=== PATIENT | female | born 1985 | race Caucasian/White ===

== ENCOUNTER → 2018-03-02 | Outpatient (CLI) | payer MEDICAID ==
[2015-08-01 17:42] VITALS: BMI 29.1
[~2018-03-02] MED LIST: ACET-1718 PO; BUTA-324 PO; CIPR-212 PO; DOXY-179 PO; ETON1VAG7 VG; IBU800 PO; IBUP800T37 PO; MARINA IUD; METR-1 PO; NIFE10CA38 PO; NOR5/325 PO; NORE-14 PO; OND4 PO; ONDA8TAB94 PO; OXYC-689 PO; PER PO; PRE20 PO; PREN-119 PO; PREN-67 PO; PROL120 PO; PROM12.546 PO; PSEU120T69 PO
--- NOTE | 2018-03-03 11:46 | RADIOLOGY IMAGING REPORT ---
FACILITY: [facility] - [place] PATIENT NAME: JIMMY CASTILLO : [id number] MR: [id number] V: [id number] EXAM DATE: ORDERING PHYSICIAN: AUTUMN VELAZQUEZ TECHNOLOGIST: Meaghan Escamilla PROCEDURE:BILATERAL DIAGNOSTIC DIGITAL MAMMOGRAM WITH CAD ASSISTED INTERPRETATION & 3D TOMOSYNTHESIS COMPARISON:None. INDICATIONS:BLOODY DISCHARGE FROM RIGHT NIPPLE. FINDINGS: Mildly heterogeneous fibroglandular tissue is seen throughout the breasts. There is no demonstration of malignant appearing mass, malignant appearing calcifications or other secondary sign of malignancy in either breast. DIAGNOSTIC CATEGORY 2--BENIGN FINDING. RECOMMENDATIONS: CLINICAL EVALUATION. IMPRESSION: BIRADS 2: Benign finding No significant abnormality of the breast is seen. Today's Right breast Ultrasound also revealed no abnormality other than minimally prominent Right retroareolar ducts therefore clinical follow-up is recommend for patient's bloody discharge of the Right nipple. Of noted a negative mammogram or Ultrasound report should not preclude biopsy or clinically suspicious lesion. Dictated by: Rebeca Rivera M.D. on 03/02/2018 at 15:59 Transcribed by: MADELINE on 03/03/2018 at 8:16 Approved by: Rebeca Rivera M.D. on 03/03/2018 at 11:45 [facility]
--- NOTE | 2018-03-03 11:47 | RADIOLOGY IMAGING REPORT ---
FACILITY: [facility] - [place] PATIENT NAME: JIMMY CASTILLO : [id number] MR: [id number] V: [id number] EXAM DATE: [id number] ORDERING PHYSICIAN: AUTUMN VELAZQUEZ TECHNOLOGIST: Nikko Wilder PROCEDURE:US RIGHT BREAST COMPLETE COMPARISON:None. INDICATIONS:RIGHT BREAST BLOODY DISCHARGE FROM NIPPLE. FINDINGS: There's several minimally prominent ducts identified in the Right retroareolar breast. No internal debris or mass is identified within the visualized ducts. Clinical follow-up recommended for patient's bloody nipple discharge on the Right. DIAGNOSTIC CATEGORY 2--BENIGN FINDING. RECOMMENDATIONS: CLINICAL EVALUATION. IMPRESSION: BIRADS 2: Benign finding No significant abnormality is identified other than minimally prominent ducts in the Right retroareolar breast. Clinical follow-up recommend for patient's blood Right nipple discharge. Dictated by: Rebeca Rivera M.D. on 03/02/2018 at 15:56 Transcribed by: MADELINE on 03/03/2018 at 8:21 Approved by: Rebeca Rivera M.D. on 03/03/2018 at 11:46 [facility]
== END ==
LOC: MAMO 10:18
PROVIDERS: ATTEND Student in an Organized Health Care Education/Training Program
DX: N60.41 Mammary duct ectasia of right breast (principal)
CPT/HCPCS: 77062; 77066

== ENCOUNTER 2018-03-23 01:52 | Day surgery (SDC) | payer MEDICAID ==
[2015-08-01 17:42] VITALS: Ht 172.7 cm; Wt 72.1 kg
--- NOTE | 2018-03-09 12:07 | NACHTIGAL H&P ---
DATE OF ADMISSION: March 23, 2018 CHIEF COMPLAINT Bloody nipple discharge on the left. HISTORY OF PRESENT ILLNESS This 33-year-old asymptomatic female has had pain with bloody nipple discharge on the left for about three weeks. She had no family history of breast cancer, no palpable masses. She underwent an an ultrasound and mammogram, which were normal. ALLERGIES KEFLEX. CURRENT MEDICATIONS She has a copper IUD and multivitamin. PAST MEDICAL HISTORY/OPERATIONS She had a cholecystectomy and a knee operation x 3, an ovarian cyst removal. REVIEW OF SYSTEMS No cardiac, pulmonary, liver or kidney disease, diabetes or hypertension. No history of deep vein thrombosis. PHYSICAL EXAMINATION GENERAL: A 33-year-old female in no acute distress. BREASTS: She has no palpable breast masses. She has bloody nipple discharge at about the one o'clock position on the nipple on the left side. IMPRESSION Bloody nipple discharge. PLAN We will try to excised that ductal system. We will inject that with methylene blue and then excise the duct system. SMITH
[~2018-03-23] VITALS: Ht 172.7 cm; Wt 72.1 kg
[~2018-03-23 01:52] MED LIST changes: +BUTA1CAP6 PO; +MULT-1335 PO
[2018-03-23 06:10] VITALS: BP 109/76
[2018-03-23] MEDS ORDERED: LIDOCAINE/SOD BICARB 8.4% SYR ID ONE (06:30)
[2018-03-23] MEDS ORDERED: FAMOTIDINE 20 MG TAB PO ONE (06:30)
[2018-03-23] MEDS ORDERED: APREPITANT 40 MG CAP PO ONE (06:30)
[2018-03-23] MEDS ORDERED: NORMOSOL R SOLN(*) 1000 ML BAG 1,000 ML IV PRN (06:30)
[2018-03-23] MEDS ORDERED: MIDAZOLAM 2 MG/2 ML VIAL IVP PRN (06:30)
[2018-03-23] MEDS ORDERED: LIDOCAINE MPF 1% 5 ML VIAL ONE (06:40)
[2018-03-23] MEDS ORDERED: PROPOFOL EMUL(*) 10MG/ML 20 ML 20 ML ONE ×2 (06:40→07:23)
[2018-03-23] MEDS ORDERED: fentaNYL CITR 100 MCG/2 ML AMP ONE ×3 (06:40→08:58)
[2018-03-23] MEDS ORDERED: DEXAMETHASONE SOD PHOS 10MG/ML ONE (06:40)
[2018-03-23] MEDS ORDERED: ONDANSETRON 4 MG/2 ML VIAL ONE (06:40)
[2018-03-23] MEDS ORDERED: MIDAZOLAM 2 MG/2 ML VIAL ONE (06:40)
[2018-03-23] MEDS ORDERED: ROPIVACAINE 0.2% 20 ML VIAL ONE (06:42)
[2018-03-23] MEDS ORDERED: PROPOFOL EMUL(*) 10MG/ML 20 ML 60 ML ONE (07:13)
[2018-03-23] MEDS ORDERED: KETOROLAC 30 MG/ML VIAL ONE (07:23)
[2018-03-23] MEDS ORDERED: LIDO/EPI 1% MPF 1:200,000 30ML ONE (07:44)
[2018-03-23] MEDS ORDERED: LIDOCAINE 1%MDV(*)200 MG/20 ML 0 ML ONE (07:44)
--- NOTE | 2018-03-23 08:15 | Post Operative Progress Note ---
Post Operative Progress Note Date: March 23, 2018 Time: 08:14 Surgeon: hugo Anesthesia: dr espino Pre-Op Diagnosis: bloody nipple discharge Post-Op Diagnosis: same Procedure(s): right breast biopsy BRETT COSME MD March 23, 2018 08:15
[2018-03-23] MEDS ORDERED: HYDR-4309 PO (08:16)
--- NOTE | 2018-03-23 08:17 | Short(Outpt) Discharge Summary ---
Discharge Summary Reason for Hosp/Final Diag: (1) Bloody discharge from nipple Hospital Course & Plan: right breast biopsy Departure Discharge to: Home Discharge Instructions Home Meds Active Scripts Hydrocodone Bit/Acetaminophen (NORCO 5-325 TABLET) 1 Each Tablet, 1 EACH PO Q4H Y for PAIN, #20 TAB Prov:BRETT COSME MD 03/23/18 Reported Medications Butalb/Acetaminophen/Caffeine (FIORICET 50-300-40) 1 Each Capsule, 1-2 EACH PO Q4H Y for PAIN/HEADACHE, CAPSULE 03/17/18 Multivitamin With Minerals (MULTIPLE VITAMIN) 1 Each Tablet, 1 EACH PO QDAY, TAB 03/17/18 Discontinued Reported Medications Pseudoephedrine Hcl (SUDAFED 12 HOUR) 120 Mg Tablet.er, 120 MG PO PRN 07/12/15 Propranolol Hcl (INDERAL LA) 120 Mg Capcr, 20 MG PO BID 07/12/15 Vit/Iron Fumarate/Fa ( VITAMIN TABLET) 1 Each Tablet, 1 EACH PO DAILY 07/12/15 Discontinued Scripts Ibuprofen (IBUPROFEN) 800 Mg Tablet, 1 TAB PO Q8H Y for pain, #30 TAB 0 Refills TAKE WITH FOOD EVERY 8 HOURS Prov:SERGO SERRANO MD 08/02/15 Acetaminophen With Codeine # 3 (ACETAMINOPHEN-COD #3 TABLET) 1 Each Tablet, 1-2 EACH PO Q4H Y for pain, #30 TAB 0 Refills Take 1-2 tablets as needed for pain no closer than every 4 hours. Prov:SERGO SERRANO MD 08/02/15 Diet: Regular Activity: As Tolerated Special Instructions: support bra to see me in one week, call [phone] for apt remove bandage and shower BRETT COSME MD March 23, 2018 08:17
[2018-03-23] MEDS ORDERED: PROMETHAZINE 25 MG/ML 1 ML AMP ONE (08:54)
[2018-03-23] MEDS ORDERED: ACETAMINOPHEN(*)1000 MG/100 ML 100 ML IVPB ONE (09:33)
[2018-03-23 09:55] VITALS: BP 113/72
[2018-03-23 10:19] VITALS: BP 105/70
[2018-03-23] MEDS ORDERED: APAP/HYDROCODONE 325/5 TAB PO ONE (10:30)
[2018-03-23 10:46] VITALS: BP 111/67
[2018-03-23 10:48] VITALS: BP 111/71
[2018-03-23 11:00] VITALS: BP 105/66
--- NOTE | 2018-03-23 17:17 | OPERATIVE REPORT 1 ---
EVENT DATE: March 23, 2018 SURGEON: Babar Whittaker MD ANESTHESIOLOGIST: Sunny Qureshi MD ANESTHESIA: General. PREOPERATIVE DIAGNOSIS Bloody nipple discharge from the right nipple. POSTOPERATIVE DIAGNOSIS Bloody nipple discharge from the right nipple. PROCEDURE PERFORMED Right breast biopsy. DESCRIPTION OF PROCEDURE The patient was placed in the supine position, given general anesthetic. The right breast was prepped and draped in a sterile fashion. In the preop area, the duct system with the blood was identified, cannulated with a 30-gauge ophthalmic needle, and methylene blue was instilled. We then made an incision along the areolar border medially and dissected underneath the skin to the nipple, and we identified that duct, clamped it with a hemostat, carefully shaved it off the undersurface of the nipple with a scalpel, and removed the breast tissue with the blue dye in it. This was done with electrocautery. We used a little local anesthetic as well. We also then injected 20 mL of 0.25% ropivacaine when the procedure was completed. No other blue dye was noted. No mass was noted. Hemostasis was obtained with electrocautery. Skin was closed with interrupted 4-0 Maxon. Steri-Strips and Airstrip were placed. The patient tolerated the procedure well with no apparent complication. SMITH
== END 2018-03-23 09:55 | disposition home or self-care (01) ==
LOC: OR 01:52
PROVIDERS: ATTEND Surgery
DX: N64.52 Nipple discharge (principal)
CPT/HCPCS: 19101; 81025; 88305; 88344; J0131; J1100; J1885; J2001; J2250; J2405; J2550; J2704; J2795; J3010; J8501

== ENCOUNTER → 2018-04-27 | Outpatient (CLI) | payer MEDICAID ==
[2015-08-01 17:42] VITALS: BMI 29.1
[~2018-04-27] MED LIST changes: +HYDR-4309 PO
--- NOTE | 2018-04-28 08:32 | RADIOLOGY IMAGING REPORT ---
FACILITY: [facility] PATIENT NAME: JIMMY CASTILLO : [id number] MR: [id number] V: [id number] EXAM DATE: ORDERING PHYSICIAN: JEANNE PORRAS TECHNOLOGIST: Nikko Wilder RDMS, RAIZA PROCEDURE:US RIGHT BREAST COMPARISON:None. INDICATIONS:BREAST PAIN S/P RIGHT LUMPECTOMY FINDINGS: There is a very small fluid collection seen just below the right nipple extending to the scar in the approximate 3 o'clock position of the Right breast. The small fluid collection measures approximately 1.2 x 0.47 x 0.7cm. No internal debris is identified. This likely represents a small postoperative seroma. Clinical follow up recommended. DIAGNOSTIC CATEGORY 2--BENIGN FINDING. RECOMMENDATIONS: CLINICAL EVALUATION. IMPRESSION: BIRADS 2: Benign finding There is a small fluid collection seen just behind the right nipple extending to the scar in the 3 o'clock position of the Right breast likely a small postoperative seroma. Clinical follow up recommended. Dictated by: Rebeca Rivera M.D. on 04/27/2018 at 17:42 Transcribed by: RICHI on 04/28/2018 at 6:41 Approved by: Rebeca Rivera M.D. on 04/28/2018 at 8:31 [facility]
== END ==
LOC: MAMO 01:26
PROVIDERS: ATTEND Physician Assistant Medical
DX: L76.34 Postprocedural seroma of skin and subcutaneous tissue following other procedure (principal)